=== PATIENT | male | born 1945 | race Caucasian/White ===

== ENCOUNTER → 2017-10-28 | Outpatient (CLI) | payer MEDICARE, OTHER ==
[~2017-10-28] VITALS: Ht 175.3 cm; Wt 113.4 kg
[~2017-10-28] MED LIST: ACETAMINOPHEN 500 MG TAB PO ONE; ARI2 PO; CHOL10005 PO; CLI150 PO; CLINDAMYCIN(*) 900 MG/NS 50 ML 50 ML IVPB ONE; CYAN250013 PO; DONE5TAB74 PO; DOXA4TAB57 PO; FAMOTIDINE 20 MG TAB PO ONE; HCTZ PO; HYDR-2966 PO; IBUP100T51 PO; LIDOCAINE/SOD BICARB 8.4% SYR ID ONE; LOR5/325 PO; LOSA50TA72 PO; LOSA50TA73 PO; MELA5TAB6 PO; MIDAZOLAM 2 MG/2 ML VIAL IVP PRN; NORMOSOL R SOLN(*) 1000 ML BAG 1,000 ML IV PRN; PRAM0.5T27 PO; PREGABALIN 75 MG CAPSULE PO ONE; SERT-181 PO; TRANEXAMIC AC 1000 MG/10ML SDV 1,000 MG in DEXTROSE 5% 50 ML BAG 50 ML IV ONE; VANCOMYCIN(*) 1 GM VIAL 1 GM, VANCOMYCIN HCL 0.750 GM VIAL 0.75 GM in NS(*) 0.9% 250 ML... IVPB ONE; ZOLP-350 PO; [UNRECOGNIZED DRUG - CODE] PO; cloNIDine EPIDUR INJ 100MCG/ML 40 MCG, ROPIVACAINE 0.5% 20 ML VIAL 25 ML, EPINEPHrine H... INJ ONE
[2017-10-28 13:44] LABS: INR 1.02
--- NOTE | 2017-10-28 16:25 | RADIOLOGY IMAGING REPORT ---
FACILITY: [facility] - [place] PATIENT NAME: Nito Pal : 1945 MR: [id number] V: [id number] EXAM DATE: ORDERING PHYSICIAN: FAIZAN VIERA TECHNOLOGIST: Location: [facility] - [place] Patient: Nito Pal : 1945 Visit/Account:[id number] Date of Sevice: 10/27/2017 Examination: Bilateral lower legs standing HISTORY: Preop for knee replacement. FINDINGS: On the right, mild right hip joint osteoarthritis is identified. There is medial greater than latera l compartment osteoarthritis at the knee. Ankle joint on the frontal view is maintained. On the left, minimal changes of hip joint osteoarthritis are seen. There is slight lateral compartme nt osteoarthritis at the knee joint. Ankle joint space is maintained. The right lower extremity measures 86.8 cm with a right femur length of 47.2 cm and a right tibial le ngth of 38.8 cm. The left lower extremity measures 86.8 cm with a left femur length of 47.0 cm and a left tibial lengt h of 39.0 cm. IMPRESSION: 1. Leg lengths as reported above. Report Dictated By: Basilio Bills at 10/28/2017 4:11 PM Report E-Signed By: Basilio Bills at 10/28/2017 4:21 PM WSN:[email or web address]
== END ==
LOC: OR 08:00 → EDSTATUS 10-29 14:20
PROVIDERS: ATTEND Orthopaedic Surgery Hand Surgery
DX: M16.11 Unilateral primary osteoarthritis, right hip (principal); I10 Essential (primary) hypertension; G47.33 Obstructive sleep apnea (adult) (pediatric); K21.9 Gastro-esophageal reflux disease without esophagitis
CPT/HCPCS: 77073; 85610; 86850; 86900; 86901

== ENCOUNTER 2018-06-13 03:39 | Inpatient (IN) | payer MEDICARE, OTHER ==
[2018-06-12 15:28] LABS: INR 1.02
--- NOTE | 2018-06-12 15:38 | RADIOLOGY IMAGING REPORT ---
FACILITY: [facility] PATIENT NAME: Nito Pal : 1945 MR: [id number] V: [id number] EXAM DATE: ORDERING PHYSICIAN: FAIZAN VIERA TECHNOLOGIST: Location: [facility] [place] Patient: Nito Pal : 1945 Visit/Account:[id number] Date of Sevice: 06/06/2018 EXAMINATION: Bilateral leg length series 06/06/2018 11:13 AM HISTORY: PREOP COMPARISON: 10/28/2017 FINDINGS: Mild acetabular spurring is present in the hips. Osteoarthritis is present in the knees w ith medial femorotibial joint space narrowing greater on the right than the left. Right lower extremity has a total measurement of 83.5 cm. The femur measures 47 cm and the tibia 36. 5 cm. Left lower extremity measures 83.5 cm. Left femur measures 47 cm and the left tibia 36.5 cm. IMPRESSION: Bilateral lower leg lengths, as above. Report Dictated By: Rohith Knox MD at 06/12/2018 3:26 PM Report E-Signed By: Rohith Knox MD at 06/12/2018 3:33 PM WSN:[email or web address]
[2018-06-13] VITALS (16 sets, daily range): BP systolic 81–146; BP diastolic 47–88
[~2018-06-13] VITALS: Ht 175.3 cm; Wt 120.2 kg
[~2018-06-13 03:39] MED LIST changes: +ASPI-1471 PO; +ATOR20TA22 PO; -FAMOTIDINE 20 MG TAB PO ONE; +FINA5TAB67 PO; +FLUOD OU; -LOSA50TA72 PO; +LOSA50TA80 PO; +PANT40TA65 PO; +ROPIVACAINE/EPI/CLONIDINE/KET 50 ML SYRINGE INJ ONE; -VANCOMYCIN(*) 1 GM VIAL 1 GM, VANCOMYCIN HCL 0.750 GM VIAL 0.75 GM in NS(*) 0.9% 250 ML... IVPB ONE; -cloNIDine EPIDUR INJ 100MCG/ML 40 MCG, ROPIVACAINE 0.5% 20 ML VIAL 25 ML, EPINEPHrine H... INJ ONE
[2018-06-13] MEDS ORDERED: ROPIVACAINE/EPI/CLONIDINE/KET 50 ML SYRINGE INJ ONE (09:00)
[2018-06-13] MEDS ORDERED: CLINDAMYCIN(*) 900 MG/NS 50 ML 50 ML IVPB ONE (09:00)
[2018-06-13] MEDS ORDERED: MIDAZOLAM 2 MG/2 ML VIAL IVP PRN (09:00)
[2018-06-13] MEDS ORDERED: TRANEXAMIC AC 1000 MG/10ML SDV 1,000 MG in DEXTROSE 5% 50 ML BAG 50 ML IV ONE (09:00)
[2018-06-13] MEDS ORDERED: LIDOCAINE/SOD BICARB 8.4% SYR ID ONE (09:00)
[2018-06-13] MEDS ORDERED: NORMOSOL R SOLN(*) 1000 ML BAG 1,000 ML IV PRN (09:00)
[2018-06-13] MEDS ORDERED: PREGABALIN 75 MG CAPSULE PO ONE (09:00)
[2018-06-13] MEDS ORDERED: ACETAMINOPHEN 500 MG TAB PO ONE (09:00)
[2018-06-13] MEDS ORDERED: fentaNYL CITR 250 MCG/5 ML AMP ONE (09:20)
[2018-06-13] MEDS ORDERED: PROPOFOL EMUL(*) 10MG/ML 20 ML 20 ML ONE (09:21)
[2018-06-13] MEDS ORDERED: LIDOCAINE MPF 1% 5 ML VIAL ONE (09:21)
[2018-06-13] MEDS ORDERED: ONDANSETRON 4 MG/2 ML VIAL ONE (09:21)
[2018-06-13] MEDS ORDERED: DEXAMETHASONE SOD 4 MG/ML VIAL ONE (09:21)
[2018-06-13] MEDS ORDERED: KETAMINE HCL 200 MG/20 ML MDV ONE (09:22)
[2018-06-13] MEDS ORDERED: SUGAMMADEX SOD 200 MG/2 ML SDV ONE (09:29)
[2018-06-13] MEDS ORDERED: ROPIVACAINE 0.5% 20 ML VIAL ONE (10:19)
[2018-06-13] MEDS ORDERED: NS 0.9% 20 ML SDV 20 ML ONE (10:19)
[2018-06-13] MEDS ORDERED: PROMETHAZINE 25 MG/ML 1 ML AMP IVP PRN (14:25)
[2018-06-13] MEDS ORDERED: MORPHINE SULFATE 30 MG PCA IV PRN ×3 (14:25→18:45)
[2018-06-13] MEDS ORDERED: ONDANSETRON 4 MG/2 ML VIAL IVP PRN (14:25)
[2018-06-13] MEDS ORDERED: NALOXONE HCL 0.4 MG/ML VIAL IVP PRN (14:25)
[2018-06-13] MEDS ORDERED: MAGNESIUM CITRATE 300 ML BTL PO PRN (14:25)
[2018-06-13] MEDS ORDERED: KCL/D5LR 20 MEQ/1000 ML PREMIX 1,000 ML IV PRN (14:25)
[2018-06-13] MEDS ORDERED: diphenhydrAMINE 25 MG CAP PO PRN (14:25)
[2018-06-13] MEDS ORDERED: ACETAMINOPHEN 500 MG TAB PO PRN (14:25)
[2018-06-13] MEDS ORDERED: FLUSH 10 ML SYR IVP PRN (14:25)
--- NOTE | 2018-06-13 14:45 | RADIOLOGY IMAGING REPORT ---
FACILITY: [facility] - [place] PATIENT NAME: Nito Pal : 1945 MR: [id number] V: [id number] EXAM DATE: ORDERING PHYSICIAN: FAIZAN VIERA TECHNOLOGIST: Location[place] [facility] [place] Patient: Nito Pal : 1945 Visit/Account:[id number] Date of Sevice: 06/13/2018 Exam type: KNEE LIMITED RIGHT History: POST RIGHT TKA Comparison: June 12, 2018. Findings: Two views of the right knee demonstrate a right knee arthroplasty in good anatomic alignment. Soft t issue gas projects over the anterior aspect this postoperative knee IMPRESSION: 1. As above Report Dictated By: Radha Bradley MD at 06/13/2018 2:40 PM Report E-Signed By: Radha Bradley MD at 06/13/2018 2:41 PM WSN:[email or web address]
--- NOTE | 2018-06-13 14:48 | OPERATIVE REPORT 1 ---
EVENT DATE: June 13, 2018 SURGEON: Lawrence Case MD ANESTHESIOLOGIST: Dale Ferguson MD ANESTHESIA: General plus femoral block. ARTERIAL EMBALMER: TUSHAR Stroud PREOPERATIVE DIAGNOSIS Right knee degenerative joint disease. POSTOPERATIVE DIAGNOSIS Right knee degenerative joint disease. PROCEDURE PERFORMED Right total knee arthroplasty (65336) ESTIMATED BLOOD LOSS Minimal. INTRAVENOUS FLUIDS Crystalloid 1500, no colloid. TOURNIQUET TIME 85 SPECIMENS No specimens. COMPLICATIONS No complications. IMPLANTS USED DePuy LinkCloud size 8 femur right on a 6-degree cut with a size 9 RP tibia, a size 41 anatomic patella, and an 8 x 6 mm RP insert. Femoral and tibial components are posterior stabilized and cemented. SUMMARY OF PROCEDURE The patient was brought into the operating room and placed on the OR table in the supine position. He had previously received an extended spinal fusion; therefore, Dr. Ferguson elected the femoral block instead of the spinal. The block was undertaken under ultrasound guidance, followed by general anesthesia, and then prep and drape of the right lower extremity. The limb was exsanguinated, and the tourniquet was inflated to 300 mmHg. A longitudinal utilitarian incision was made, deepened through skin and subcutaneous tissue. A medial parapatellar approach followed. The tissues in this region were quite inflamed due to bursitis. The fluid within the joint was clear. We had some difficulty everting the patella due to heavy scar tissue along the patellar tendon as well as the fat pad, which was very dense. Once we cleared this out, we were able to cecily the patella, but I had to release a little bit of the superomedial aspect of the tibial tubercle attachment. I would estimate that the amount of release to decrease tension was only about 10% of its total area. Once we did this, we were able to cecily, and then we released the patellofemoral ligament as well as the ACL and continued by removing meniscus. He had complete vcjt-hv-bywe contact on the medial side. We gained access to the femoral canal and cut on a 6 degree. We then set the sizer for an 8 and continued with the block cuts, but when I checked this, it looked like it needed to be inferiorly shifted a little bit, which we did do. When we checked the sizing device afterwards, it was a bit tight. Consequently, I trimmed a little bit more inferiorly since that where we would have shifted the tissues anyway because of the inferior shift of the cutting block. After doing this, it fit much better. We placed the cutting block for the notch and produced the notch, after which the trial was placed, and we drilled the lug holes. We then went to the tibia. Intramedullary guidance was used again. It was highly eburnated, and his bone was extremely dense, so it took a bit to go through, but we were able to get it out. I released the posterior capsule only on the medial side based on tensioning, and we also recessed the PCL. With this done, the trials were placed having completed the keel creation for the RP system. It looked like things fit quite well with a 5 to 6. We did use an 18-gauge needle to trephinate the medial collateral ligament under tension a bit to help with the balance. I did not want to go any higher than 6. The patella was very large. We took 9.5 mm off and then set the trial as at a 14 and drilled the lug holes. There was a cyst in the tibia that was curettaged and then drilled at its base. We also drilled the base of the cut afterward because of the eburnation, but with the trials removed again, we were able to mix cement and then inserted the final implants with exception of the insert starting with the tibia, then the femur, and then finally the patella. After full polymerization, we trialed again, and it looked like the balance was quite good. A 6 was selected. The trial implant was removed, and the final 6 was placed. He tolerated the procedure well. The wound was irrigated. We had injected the posterior capsule and the quadriceps mechanism as well as the periosteum with a local anesthetic and also used IrriSept during the procedure. The quadriceps mechanism was now closed with #1 Vicryl, followed by 3-0 and 2-0 Vicryl for the subcutaneous tissues and then 4-0 Monocryl with Dermabond for the skin. He was awakened and transferred to the recovery area in stable condition. STEPHAN
[2018-06-13] MEDS ORDERED: ALBUTEROL 2.5 MG/3 ML NEB NEB PRN (16:00)
--- NOTE | 2018-06-13 16:16 | Hospitalist Progress Note ---
Subjective Progress Notes Subjective No cp/sob. 20cc EBL. 1500cc of crystalloid, TXA, and dexamethasone given intra- op. Physical Exam Vital Signs Date Time Temp Pulse Resp B/P (MAP) Pulse Ox O2 Delivery O2 Flow Rate FiO2 06/13/18 15:11 93 Nasal Cannula 3.0 06/13/18 15:00 98.4 68 16 125/71 (89) General Appearance: Alert, Awake, No Acute Distress Cardiovascular: Regular Rate and Rhythm Respiratory: Clear to Auscultation Extremities: No Edema Result Diagram: 06/13/18 1404 Assessment and Plan Problems: (1) Status post knee replacement Status: Acute Assessment & Plan: No CV/pulmonary issues. He denies a h/o DVT or PE. He will be on ASA 325mg a day for 30 days for blood clot prevention. (2) HTN (hypertension) Status: Chronic Assessment & Plan: Continue chronic HCTZ and Losartan with parameters. (3) BPH (benign prostatic hyperplasia) Status: Chronic Assessment & Plan: Continue chronic finasteride and doxazosin. (4) GERD (gastroesophageal reflux disease) Status: Chronic Assessment & Plan: Continue chronic Protonix. (5) Depression Status: Chronic Assessment & Plan: Continue chronic Abilify and Zoloft. (6) Dementia Status: Chronic Assessment & Plan: Continue chronic Donepezil. (7) LBBB (left bundle branch block) Status: Chronic Assessment & Plan: He has a stress test prior to surgery and was cleared by Cardiology. (8) TRACI (obstructive sleep apnea) Status: Chronic Assessment & Plan: Continue CPAP use. Exam Sepsis Risk: No Definite Risk Problem Qualifiers (1) Status post knee replacement: Laterality: left Qualified Codes: Z96.652 - Presence of left artificial knee joint MI JUNIOR MD Jun 13, 2018 16:16
--- NOTE | 2018-06-13 16:46 | NUR ---
Physical Therapy Impression Per pt's son, he does have underlying dementia and [facility] Pt does seem drowsy currently but is agreeable to attempt standing at edge of bed. Pt unable to stand safely due to difficulty with motor planning and weakness at R) LE. Pt tolerated lateral scoot to head of bed and returned to supine. Nursing staff alerted to use EZ lift with pt if he wants to attempt standing again this pm, to ensure pt and staff safety. Physical Therapy Goals Patient's Goals
[2018-06-13] MEDS ORDERED: CLOT15CR64 TP (18:02)
[2018-06-13] MEDS ORDERED: ALB18R INH (18:02)
[2018-06-13] MEDS: CLINDAMYCIN 150 MG CAP PO SCH (19:42)
[2018-06-13] MEDS: DONEPEZIL HCL 5 MG TAB PO SCH (20:40)
[2018-06-13] MEDS: ATORVASTATIN 40 MG TAB PO SCH (20:40)
[2018-06-13] MEDS: MELATONIN 3 MG TAB PO SCH (20:40)
[2018-06-13] MEDS: DOXAZOSIN MESYLATE 2 MG TAB PO SCH (20:41)
[2018-06-14] VITALS (8 sets, daily range): BP systolic 114–146; BP diastolic 55–91; Ht 175.3 cm; Wt 120.2 kg
[2018-06-14] MEDS: CLINDAMYCIN 150 MG CAP PO SCH ×2 (02:49→11:36)
[2018-06-14 06:07] LABS: PLATELET COUNT, AUTOMATED 166 K/uL (150-450)
[2018-06-14] MEDS ORDERED: ASPI-764 PO (06:26)
--- NOTE | 2018-06-14 06:27 | Hospitalist Progress Note ---
Subjective Progress Notes Subjective No cp/sob. No concerns from the patient or staff. Physical Exam Vital Signs Date Time Temp Pulse Resp B/P (MAP) Pulse Ox O2 Delivery O2 Flow Rate FiO2 06/14/18 02:46 97.8 56 119/69 (86) 93 Nasal Cannula 1.0 06/13/18 15:00 16 Intake and Output0 06/14/18 07:00 Intake Total 1725 ml Output Total 320 ml Balance 1405 ml Intake Oral 100 ml IV Total 1625 ml Output Urine Total 300 ml Estimated Blood Loss 20 ml # Voids 1 General Appearance: Alert, Awake, No Acute Distress Respiratory: Clear to Auscultation Result Diagram: 06/14/18 0549 Assessment and Plan Problems: (1) Status post knee replacement Status: Acute Assessment & Plan: No CV/pulmonary issues. He denies a h/o DVT or PE. He will be on ASA 325mg a day for 30 days for blood clot prevention. (2) Hypoxia Status: Acute Assessment & Plan: It is secondary to anesthetics, narcotics and Elena's high altitude. There is low clinical concern for PE or pneumonia. If the patient needs to go home on O2, they need to have a room air saturation checked in a few days at their PCP. The patient is to bring a copy of today's Hospitalist note with them. (3) HTN (hypertension) Status: Chronic Assessment & Plan: Continue chronic HCTZ and Losartan with parameters. (4) BPH (benign prostatic hyperplasia) Status: Chronic Assessment & Plan: Continue chronic finasteride and doxazosin. (5) GERD (gastroesophageal reflux disease) Status: Chronic Assessment & Plan: Continue chronic Protonix. (6) Depression Status: Chronic Assessment & Plan: Continue chronic Abilify and Zoloft. (7) Dementia Status: Chronic Assessment & Plan: Continue chronic Donepezil. (8) LBBB (left bundle branch block) Status: Chronic Assessment & Plan: He has a stress test prior to surgery and was cleared by Cardiology. (9) TRACI (obstructive sleep apnea) Status: Chronic Assessment & Plan: Continue CPAP use. Exam Sepsis Risk: No Definite Risk Problem Qualifiers (1) Status post knee replacement: Laterality: left Qualified Codes: Z96.652 - Presence of left artificial knee joint MI JUNIOR MD Jun 14, 2018 06:27
[2018-06-14] MEDS: LOSARTAN POTASSIUM 50 MG TAB PO SCH (09:03)
[2018-06-14] MEDS: HYDROCHLOROTHIAZIDE 25 MG TAB PO SCH (09:04)
[2018-06-14] MEDS: SERTRALINE HCL 50 MG TAB PO SCH (09:07)
[2018-06-14] MEDS: FINASTERIDE 5 MG TAB PO SCH (09:07)
[2018-06-14] MEDS: ASPIRIN 325 MG ENTERIC COATED PO SCH (09:07)
[2018-06-14] MEDS: PANTOPRAZOLE SOD 40 MG TABEC PO SCH (09:07)
[2018-06-14] MEDS: FLUOROMETHOLONE 0.1% OP SUSP OU SCH (09:08)
--- NOTE | 2018-06-14 10:52 | NUR ---
Physical Therapy Impression Pt required several attempts for motor planning to decide how to get out of bed. Ultimately, pt chose a log roll technique and knee flexion was tolerated well during this. Min assist required to assist heels back up onto bed with sit to supine. Initial stand at EOB required Mod assist. Once pt had a stable base of support he was able to side step at edge of bed with adequate safety. During gait to/from BR, pt requires short cajv-hn-ndwy cues for maneuvering walker, turning to sit on toilet and where to place hands. Pt additionally responds best to tactile and visual cues with fewer verbal cues. PT used Min assist to turn walker for pt as cues were not completely beneficial at times. Confusion and motor planning are currently the most significant limiting factor. Physical Therapy Goals 1. Pt to be modified indep with bed mobility and supine to/from sit 2. Pt to be SBA/Modified indep with sit to/from stand 3. Pt to ambulate 150' with FWW and functional gait speed. 4. Pt to chani up/down platform step x 2 reps with least restrictive device and SBA/CGA. Patient's Goals
--- NOTE | 2018-06-14 13:00 | NUR ---
Physical Therapy Impression Dr. Lane Moralez just met with pt/CG. Pt currently has a fever and demos shortness of breath. Pt is going to have chest x-ray. Will hold pm Therapy visit and await results. Nursing to ambulate with pt to/from BR as tolerated once cleared by MD. Physical Therapy Goals 1. Pt to be modified indep with bed mobility and supine to/from sit 2. Pt to be SBA/Modified indep with sit to/from stand 3. Pt to ambulate 150' with FWW and functional gait speed. 4. Pt to chani up/down platform step x 2 reps with least restrictive device and SBA/CGA. Patient's Goals
[2018-06-14] MEDS ORDERED: ALBUTEROL/IPRATROPIUM 3 ML NEB NEB ONE (13:30)
--- NOTE | 2018-06-14 13:52 | Miscellaneous Provider Note ---
Miscellaneous Provider Note Note Called to see patient with fever to 100.6 with increased work of breathing. Per the patient's son, he did smoke for 30 years and does have dyspnea with exertion at home. He was noted to be hypoxic after surgery and this was felt to be due to altitude, probable COPD and general anesthesia. He has been requiring 1L of O2 to maintain his saturations. The patient's son notes he has seemed to be weaker today and was unable to feed himself at lunch time. He does have dementia affecting his posterior cortical area and has spacial-motor issues with this. On exam, the patient had mild increased work of breathing with audible wheezing at the end of expiration. Sats were maintained on 1L of O2. VSS. Exam revealed the patient to be warm to the touch. He was able to roll on to his right side unassisted so that I could examine his lungs. He was able to use both upper extremities without difficulty. Lung exam revealed decreased breath sounds throughout with some wheezing on forced expiration. Rest of exam was unremarkable. Fever, dyspnea with wheezing--Will order a CXR (ap) and UA. Will watch overnight and repeat labs in am. Duoneb ordered. If the patient receives some benefit from the Duoneb, will continue these treatments. If CXR negative and patient does not improve with Duoneb, consider further evaluation such as CTA. Currently his O2 sats on 1 L are very stable which makes a PE less likely. By history, the patient has COPD and may be having an exacerbation. KASANDRA GRANGER MD Jun 14, 2018 13:52
[2018-06-14] MEDS: NS(*) 0.9% 1000 ML BAG 1,000 ML IV PRN ×2 (15:24→23:50)
--- NOTE | 2018-06-14 17:10 | RADIOLOGY IMAGING REPORT ---
FACILITY: [facility] PATIENT NAME: Nito Pal : 1945 MR: [id number] V: [id number] EXAM DATE: ORDERING PHYSICIAN: KASANDRA GRANGER TECHNOLOGIST: Location: [facility] Patient: Nito Pal : 1945 Visit/Account:[id number] Date of Sevice: 06/14/2018 CHEST SINGLE AP Indication: Fever and dyspnea.. Comparison: None available Findings: Cardiomediastinal silhouette and pulmonary vessels within normal limits for the technique. There is no focal infiltrate or lobar consolidation. No pneumothorax or pleural effusion. Right lower lobe does show linear opacity suggestive scar discoid atelectasis. No discrete nodules. T he upper abdomen is unremarkable. No acute bony abnormality. IMPRESSION: 1. Right lower lobe linear atelectasis or scarring. No focal infiltrate. Report Dictated By: Lawrence Keith at 06/14/2018 5:04 PM Report E-Signed By: Lawrence Keith at 06/14/2018 5:06 PM WSN:[email or web address]
[2018-06-14] MEDS ORDERED: diphenhydrAMINE 50 MG/ML VIAL IVP PRN (17:30)
--- NOTE | 2018-06-14 17:30 | Miscellaneous Provider Note ---
Miscellaneous Provider Note Note CXR shows atelectasis/scarring. The patient's preop CXR was normal without any evidence of scarring or atelectasis. Will order flutter therapy and start antibiotics for possible pneumonia in light of increased respiratory rate and fever. Will repeat CXR and labs in am. KASANDRA GRANGER MD Jun 14, 2018 17:30
[2018-06-14] MEDS: IMIPENEM/CILASTA(*) 500MG VIAL 400 MG in NS(*) 0.9% 100 ML BAG 100 ML IVPB SCH ×2 (18:22→23:48)
[2018-06-14] MEDS: ALBUTEROL/IPRATROPIUM 3 ML NEB NEB SCH (18:42)
[2018-06-14] MEDS: ATORVASTATIN 40 MG TAB PO SCH (21:16)
[2018-06-14] MEDS: DOXAZOSIN MESYLATE 2 MG TAB PO SCH (21:16)
[2018-06-14] MEDS: DONEPEZIL HCL 5 MG TAB PO SCH (21:16)
[2018-06-14] MEDS: MELATONIN 3 MG TAB PO SCH (21:16)
[2018-06-15] VITALS (7 sets, daily range): BP systolic 134–177; BP diastolic 66–92
[2018-06-15] MEDS: IMIPENEM/CILASTA(*) 500MG VIAL 400 MG in NS(*) 0.9% 100 ML BAG 100 ML IVPB SCH (05:30)
[2018-06-15] MEDS: ALBUTEROL/IPRATROPIUM 3 ML NEB NEB SCH ×3 (05:34→18:16)
[2018-06-15 05:47] LABS: PLATELET COUNT, AUTOMATED 153 K/uL (150-450)
[2018-06-15] MEDS: LOSARTAN POTASSIUM 50 MG TAB PO SCH (09:00)
[2018-06-15] MEDS: HYDROCHLOROTHIAZIDE 25 MG TAB PO SCH (09:00)
[2018-06-15] MEDS: FLUOROMETHOLONE 0.1% OP SUSP OU SCH (09:00)
[2018-06-15] MEDS: NS(*) 0.9% 1000 ML BAG 1,000 ML IV PRN (09:20)
[2018-06-15] MEDS: PANTOPRAZOLE SOD 40 MG TABEC PO SCH (09:21)
[2018-06-15] MEDS: SERTRALINE HCL 50 MG TAB PO SCH (09:21)
[2018-06-15] MEDS: FINASTERIDE 5 MG TAB PO SCH (09:21)
[2018-06-15] MEDS: ASPIRIN 325 MG ENTERIC COATED PO SCH (09:21)
[2018-06-15] MEDS ORDERED: MAGNESIUM HYDROXIDE* 30ML UDCP PO PRN (09:25)
[2018-06-15] MEDS ORDERED: BISACODYL 10 MG SUPP PR PRN (09:25)
[2018-06-15] MEDS: ACETAMINOPHEN 500 MG TAB PO PRN (09:35)
[2018-06-15] MEDS: oxyCODONE HCL 5 MG CAP PO PRN ×2 (09:41→16:00)
[2018-06-15] MEDS ORDERED: POLYETHYLENE GLYCOL 17 GM PKT PO SCH (10:00)
--- NOTE | 2018-06-15 10:14 | RADIOLOGY IMAGING REPORT ---
FACILITY: [facility] PATIENT NAME: Nito Pal : 1945 MR: [id number] V: [id number] EXAM DATE: ORDERING PHYSICIAN: KASANDRA GRANGER TECHNOLOGIST: Location: [facility] Patient: Nito Pal : 1945 Visit/Account:[id number] Date of Sevice: 06/15/2018 Single view of the chest Indication: Atelectasis, fever. Comparison: None available Findings: Interstitial infiltrates are seen in the right hilum. Overall findings appears slightly progressive a s compared to x-ray from yesterday. No large consolidation, effusion or pneumothorax. IMPRESSION: 1. Linear opacity in the inferior right hilum extending to the right lower lung. The finding could re present atelectasis, aspiration or infiltrate. This is subtly progressive as compared to x-ray from M arch 2. Report Dictated By: Jose Luis Rosales MD at 06/15/2018 10:07 AM Report E-Signed By: Jose Luis Rosales MD at 06/15/2018 10:10 AM WSN:[email or web address]
--- NOTE | 2018-06-15 11:15 | NUR ---
Physical Therapy Impression CG notes that pt is much more alert and appropriate this morning as compared to yesterday. Pt agreeable to attempt ambulation in hallway after toileting. Pt requires encouragement to take larger steps and improve los. Pt is noted to hesitate at changes in shellie and sometimes steps in place thinking he is moving forward, similar to a Parkinsonism gait pattern with freezing. Pt requires tactile and visual cues to avoid objects in hallway and to complete turns safely. Pt would not currently be safe to return home at this level of mobility and would benefit from further short-term subacute rehab to return to safe prior level of function with [facility] services provided through the [place] as before. Physical Therapy Goals 1. Pt to be modified indep with bed mobility and supine to/from sit 2. Pt to be SBA/Modified indep with sit to/from stand 3. Pt to ambulate 150' with FWW and functional gait speed. 4. Pt to chani up/down platform step x 2 reps with least restrictive device and SBA/CGA. Patient's Goals
--- NOTE | 2018-06-15 11:19 | Hospitalist Progress Note ---
Subjective Progress Notes Subjective He denies CP/SOB. He was wheezy and febrile yesterday. Because of a possible RLL pneumonia, he was started on Primaxin. No reported cough today. His son doesn't think the patient had a cough prior to surgery. Physical Exam Vital Signs Date Time Temp Pulse Resp B/P (MAP) Pulse Ox O2 Delivery O2 Flow Rate FiO2 06/15/18 08:06 98.9 83 18 134/82 (99) 90 Nasal Cannula 2.0 Intake and Output 06/15/18 06:59 Intake Total 1873 ml Output Total 500 ml Balance 1373 ml Intake Oral 660 ml IV Total 1213 ml Output Urine Total 500 ml # Voids 3 General Appearance: Alert, Awake, No Acute Distress Cardiovascular: Regular Rate and Rhythm Respiratory: Clear to Auscultation Extremities: No Edema Result Diagram: 06/15/1851806/15/18518 Assessment and Plan Problems: (1) Status post knee replacement Status: Acute Assessment & Plan: No CV/pulmonary issues. He denies a h/o DVT or PE. He will be on ASA 325mg a day for 30 days for blood clot prevention. OxyContin stopped. See below. Will start Mobic (BMP tomorrow), stop Percocet and use oxycodone and Tylenol separately. Starting a bowel regimen. (2) Cognitive decline Status: Acute Assessment & Plan: He is now requiring assistance with eating and having trouble with ambulation. Likely, it is narcotics and anesthetics exacerbating his baseline dementia. Oxycontin stopped and will minimized oxycodone use. (3) COPD (chronic obstructive pulmonary disease) Status: Acute Assessment & Plan: He acutely became wheezy and dyspneic yesterday. CXR yesterday showed a subtle RLL opacity, which might be a bit worse today. However, the patient is afebrile, has no cough and lungs are clear. Likely, he had an exacerbation of COPD and is now on schedule DuoNebs and prn albuterol. Primaxin stopped. Will follow symptoms. (4) HTN (hypertension) Status: Chronic Assessment & Plan: Continue chronic HCTZ and Losartan with parameters. (5) BPH (benign prostatic hyperplasia) Status: Chronic Assessment & Plan: Continue chronic finasteride and doxazosin. (6) GERD (gastroesophageal reflux disease) Status: Chronic Assessment & Plan: Continue chronic Protonix. (7) Depression Status: Chronic Assessment & Plan: Continue chronic Abilify and Zoloft. (8) Dementia Status: Chronic Assessment & Plan: Continue chronic Donepezil. (9) LBBB (left bundle branch block) Status: Chronic Assessment & Plan: He has a stress test prior to surgery and was cleared by Cardiology. (10) TRACI (obstructive sleep apnea) Status: Chronic Assessment & Plan: Continue CPAP use. Exam Sepsis Risk: No Definite Risk Problem Qualifiers (1) Status post knee replacement: Laterality: left Qualified Codes: Z96.652 - Presence of left artificial knee joint MI JUNIOR MD Jun 15, 2018 11:19
[2018-06-15] MEDS: DOCUSATE SODIUM 100 MG CAP PO SCH ×2 (11:59→21:26)
[2018-06-15] MEDS: DOXAZOSIN MESYLATE 2 MG TAB PO SCH (21:26)
[2018-06-15] MEDS: DONEPEZIL HCL 5 MG TAB PO SCH (21:26)
[2018-06-15] MEDS: MELATONIN 3 MG TAB PO SCH (21:26)
[2018-06-15] MEDS: MELOXICAM 7.5 MG TAB PO PRN (21:26)
[2018-06-15] MEDS: ATORVASTATIN 40 MG TAB PO SCH (21:27)
[2018-06-16] MEDS: NS(*) 0.9% 1000 ML BAG 1,000 ML IV PRN (00:58)
[2018-06-16 02:43] VITALS: BP 153/72
[2018-06-16] MEDS: ALBUTEROL/IPRATROPIUM 3 ML NEB NEB SCH ×2 (04:54→11:05)
[2018-06-16 05:58] LABS: PLATELET COUNT, AUTOMATED 143 K/uL (150-450)
[2018-06-16] MEDS: LOSARTAN POTASSIUM 50 MG TAB PO SCH (09:00)
[2018-06-16] MEDS: HYDROCHLOROTHIAZIDE 25 MG TAB PO SCH (09:00)
[2018-06-16 09:29] VITALS: BP 128/62
[2018-06-16] MEDS: SERTRALINE HCL 50 MG TAB PO SCH (09:51)
[2018-06-16] MEDS: DOCUSATE SODIUM 100 MG CAP PO SCH (09:51)
[2018-06-16] MEDS: MELOXICAM 7.5 MG TAB PO PRN (09:51)
[2018-06-16] MEDS: ASPIRIN 325 MG ENTERIC COATED PO SCH (09:51)
[2018-06-16] MEDS: FINASTERIDE 5 MG TAB PO SCH (09:52)
[2018-06-16] MEDS: PANTOPRAZOLE SOD 40 MG TABEC PO SCH (09:52)
--- NOTE | 2018-06-16 10:30 | NUR ---
Physical Therapy Impression CG notes that pt was given narcotic pain medication again last evening and noted increased difficulty with motor planning and problem solving for mobility. SBAR with nursing indicates that pt is now only getting Mobic and emphasis will be on ice/elevation for edema reduction to assist with conservative pain management techniques as well. Pt demos significant improvement in gait los today, but continues to require cues for safety with use of FWW, this time to ensure it was kept close to body and not pushed too far forward during ambulation. Very limited min assist was utilized during 180 degree turn when pt was ready to return to room. Pt responded better to verbal and visual cues to avoid obstacles in hallway when encouraged to scan his environment during ambulation as well. Physical Therapy Goals 1. Pt to be modified indep with bed mobility and supine to/from sit 2. Pt to be SBA/Modified indep with sit to/from stand 3. Pt to ambulate 150' with FWW and functional gait speed. 4. Pt to chani up/down platform step x 2 reps with least restrictive device and SBA/CGA. Patient's Goals
--- NOTE | 2018-06-16 11:17 | Hospitalist Progress Note ---
Subjective Progress Notes Subjective He was admitted after knee replacement. He has no complaints, denies CP/SOB or cough. Patient Complains of: Cardiovascular: No: Chest Pain Respiratory: No: Shortness of Breath Physical Exam Vital Signs Date Time Temp Pulse Resp B/P (MAP) Pulse Ox O2 Delivery O2 Flow Rate FiO2 06/16/18 11:12 78 16 06/16/18 11:07 92 Nasal Cannula 1.5 06/16/18 09:29 98.1 128/62 (84) Intake and Output 06/15/18 23:59 Intake Total 1473 ml Output Total 552 ml Balance 921 ml Intake Oral 340 ml IV Total 1133 ml Output Urine Total 552 ml # Voids 2 General Appearance: Alert, Awake, No Acute Distress, Afebrile Neuro: No Gross deficits Cardiovascular: Regular Rate and Rhythm Respiratory: No Respiratory Distress, Clear to Auscultation GI: Soft and Non-Tender Extremities: Warm, Perfused; No Edema Psych: Alert & Oriented X3, Appropriate Mood & Affect Result Diagram: 06/16/1852506/16/18525 Assessment and Plan Problems: (1) Status post knee replacement Status: Acute Assessment & Plan: No CV/pulmonary issues. He denies a h/o DVT or PE. He will be on ASA 325mg a day for 30 days for blood clot prevention. OxyContin stopped. See below. Will start Mobic, stop Percocet and use oxycodone and Tylenol separately. Starting a bowel regimen. (2) Cognitive decline Status: Acute Assessment & Plan: He was requiring assistance with eating and having trouble with ambulation. It likely was related to the narcotics and anesthetics exacerbating his baseline dementia. Oxycontin stopped and will minimized oxycodone use. Seems to have improved this morning. (3) COPD (chronic obstructive pulmonary disease) Status: Acute Assessment & Plan: He acutely became wheezy and dyspneic 3/2. CXR showed a subtle RLL opacity, which might be a bit worse today. However, the patient is afebrile, has no cough and lungs are clear. Likely, he had an exacerbation of COPD and is now on schedule DuoNebs and prn albuterol. Primaxin stopped. Will follow symptoms. (4) HTN (hypertension) Status: Chronic Assessment & Plan: Continue chronic HCTZ and Losartan with parameters. (5) BPH (benign prostatic hyperplasia) Status: Chronic Assessment & Plan: Continue chronic finasteride and doxazosin. (6) GERD (gastroesophageal reflux disease) Status: Chronic Assessment & Plan: Continue chronic Protonix. (7) Depression Status: Chronic Assessment & Plan: Continue chronic Abilify and Zoloft. (8) Dementia Status: Chronic Assessment & Plan: Continue chronic Donepezil. (9) LBBB (left bundle branch block) Status: Chronic Assessment & Plan: He has a stress test prior to surgery and was cleared by Cardiology. (10) TRACI (obstructive sleep apnea) Status: Chronic Assessment & Plan: Continue CPAP use. Exam Sepsis Risk: No Definite Risk Problem Qualifiers (1) Status post knee replacement: Laterality: left Qualified Codes: Z96.652 - Presence of left artificial knee joint FORREST PEOPLES SLEDGER Jun 16, 2018 11:17
[2018-06-16 13:46] VITALS: BP 142/72
[2018-06-16] MEDS: ACETAMINOPHEN 500 MG TAB PO PRN (16:11)
[2018-06-18] MEDS ORDERED: ARIPiprazole 10 MG TAB PO SCH (09:00)
== END 2018-06-16 16:15 | DRG 469 ==
LOC: OR 03:39 → MED 15:00
PROVIDERS: ADMIT Orthopaedic Surgery Hand Surgery; ATTEND Orthopaedic Surgery Hand Surgery
PROC: 0SRC0J9 Replacement of Right Knee Joint with Synthetic Substitute, Cemented, Open Approach (ICD-10-PCS; principal; 2018-06-13 11:00)
PROC: 5A09357 Assistance with Respiratory Ventilation, Less than 24 Consecutive Hours, Continuous Positive Airway Pressure (ICD-10-PCS; 2018-06-13 11:00)
DX: M17.11 Unilateral primary osteoarthritis, right knee (principal); J18.9 Pneumonia, unspecified organism; J44.1 Chronic obstructive pulmonary disease with (acute) exacerbation; J44.0 Chronic obstructive pulmonary disease with (acute) lower respiratory infection; I10 Essential (primary) hypertension; E87.5 Hyperkalemia; G47.33 Obstructive sleep apnea (adult) (pediatric); K21.9 Gastro-esophageal reflux disease without esophagitis; F32.9 Major depressive disorder, single episode, unspecified; G25.81 Restless legs syndrome; I27.20 Pulmonary hypertension, unspecified; N40.0 Benign prostatic hyperplasia without lower urinary tract symptoms; F03.90 Unspecified dementia, unspecified severity, without behavioral disturbance, psychotic disturbance, mood disturbance, and anxiety; I44.7 Left bundle-branch block, unspecified; R09.02 Hypoxemia; T70.29XA Other effects of high altitude, initial encounter; T41.45XA Adverse effect of unspecified anesthetic, initial encounter; T40.605A Adverse effect of unspecified narcotics, initial encounter; Z87.891 Personal history of nicotine dependence; Z98.1 Arthrodesis status
CPT/HCPCS: 36415; 71045; 76942; 77073; 81001; 82310; 82374; 82435; 82565; 82947; 84132; 84295; 84520; 85014; 85018; 85025; 85610; 86850; 86900; 86901; 94640; 94667; 94668; 97162; C1713; C1776; J0743; J1100; J2001; J2250; J2405; J2704; J2795; J3010; J3490; J7030; J7050; J7060